=== PATIENT | female | born 1945 | race Caucasian/White ===

== ENCOUNTER 2016-11-30 19:09 | Emergency (ER) | payer MEDICARE, BC ==
--- NOTE | ~2016-11-30 | CR20 ---
[facility]. [facility] A Service of [facility] & [facility] RADIOLOGY TEXT RESULTS PATIENT: DEBRA KAUR LOCATION: SED : 46 UNIT #: [id number] AGE: [address]: Harrison James MD SEX: F ORDER DR: [id number] [place] [id number] E MR#: [id number] Acc #: [id number] NAME: DEBRA KAUR. : 1945 SEX: F STUDY DATE/TIME: 11/30/2016 20:10 UNIT: SED ROOM: STUDY DESCRIPTION: CR Ankle Min 3 Views Lt Attending Physician: Harrison James M.D. Ordering Physician: Harrison James M.D. Primary Care Physician: Jonathan Darden M.D. MEDICAL IMAGING REPORT This report is preliminary unless electronic signature is present. EXAM Left ankle 3 views HISTORY Ankle pain after fall today. FINDINGS AP, lateral, and oblique projections of the ankle show satisfactory integrity of the joint mortise with a smooth articular surface. There is no identifiable fracture, dislocation, or radiopaque foreign body. IMPRESSION Normal ankle. Dictated by... Mann Lewis M.D. THIS IS AN ELECTRONICALLY VERIFIED REPORT Mann Lewis M.D. at 12/01/2016 12:59 PM DFL/phuc TD: 12/01/2016 09:03 JOB #: [id number] MEDICAL IMAGING REPORT Page 1 of 1
--- NOTE | ~2016-11-30 | CR94 ---
[facility]. [facility] A Service of [facility] & [facility] RADIOLOGY TEXT RESULTS PATIENT: DEBRA KAUR LOCATION: SED : 47 UNIT #: [id number] AGE: [address]: Harrison James MD SEX: F ORDER DR: [id number] [place] [id number] E MR#: [id number] Acc #: [id number] NAME: DEBRA KAUR. : 1945 SEX: F STUDY DATE/TIME: 11/30/2016 20:10 UNIT: SED ROOM: STUDY DESCRIPTION: CR Elbow Min 3 Views Rt Attending Physician: Harrison James M.D. Ordering Physician: Harrison James M.D. Primary Care Physician: Jonathan Darden M.D. MEDICAL IMAGING REPORT This report is preliminary unless electronic signature is present. EXAM Right elbow 3 views HISTORY Elbow pain after fall today. FINDINGS 3 views of the right elbow demonstrate comminuted transverse fracture of the radial neck with 4.0 mm relative anterior displacement of the radial head. No fracture angulation. There is also a comminuted oblique fracture of the proximal ulna extending into the coronoid process with less than 10 degrees posterior angulation of the fracture apex and soft tissue swelling over the posterior margin of the proximal ulna at the fracture site. No dislocation. There is a small elbow effusion. Generalized demineralization. Dictated by... Mann Lewis M.D. THIS IS AN ELECTRONICALLY VERIFIED REPORT Mann Lewis M.D. at 12/01/2016 12:59 PM NORA/anthony TD: 12/01/2016 09:02 JOB #: [id number] MEDICAL IMAGING REPORT Page 1 of 1
[~2016-11-30 19:09] MED LIST: ADVAIR 2501 DISK W/1 IH; ADVAIR 2501 DISK W/D PO; ALBUTEROL MININEB NEB; ALBUTEROL17 GM INH; ALPRAZOLAM PO; ASPIRIN81 M2 PO; ASPIRIN81 MG PO; BETAPACE PO; CARVEDILOL3.125 MG PO; CORDARONE200 M1 PO; CRESTOR PO; DAZIDOX10 MG PO; ELIQUIS2.5 MG PO; KLONOPIN1 MG PO; LASIX20 MG PO; LEVAQUIN750 M1 PO; LEXAPRO PO; LISINOPRIL2.5 MG PO; LOMOTIL TABLET1 TAB PO; LORTAB 10-5001 EACH PO; LORTAB 7.5-5001 TAB PO; MOBIC15 MG PO; NITROGYLCERIN SUBLINGUAL; PLAVIX PO; PRAVACHOL PO; PRAVASTATIN SOD20 MG PO; PREDNISONE PO; PROTONIX PO; SOTALOL AF120 M1 PO; SOTALOL AF80 M1 PO; SPIRIVA18 MCG INH; TUSSIONEX PENN473 ML PO; ZITHROMAX PO
[2016-12-24] MEDS ORDERED: OXYGEN (08:17)
[2016-12-24] MEDS ORDERED: INCRUSE ELLI62.5 MCG INH (08:56)
[2016-12-24] MEDS ORDERED: ADVAIR 250-501 EACH INH (08:56)
== END 2016-11-30 21:21 | disposition home or self-care (01) ==
LOC: SED 19:09
DX: S52.041A Displaced fracture of coronoid process of right ulna, initial encounter for closed fracture (principal); S52.131A Displaced fracture of neck of right radius, initial encounter for closed fracture; S93.402A Sprain of unspecified ligament of left ankle, initial encounter; F17.210 Nicotine dependence, cigarettes, uncomplicated; W19.XXXA Unspecified fall, initial encounter; Y92.009 Unspecified place in unspecified non-institutional (private) residence as the place of occurrence of the external cause
CPT/HCPCS: 29105; 29125; 73080; 73610; 99284

== ENCOUNTER → 2016-12-19 | Outpatient (CLI) | payer MEDICARE, BC ==
[~2016-12-19] MED LIST changes: +ADVAIR 250-501 EACH INH; +AMIODARONE PO; +COMBIVENT MININEB INH; +ESCITALOPRAM OX10 MG PO; +INCRUSE ELLI62.5 MCG INH; +NITROGLYCERIN0.4 MG SL; +OXYCODONE HCL10 MG PO; +OXYGEN; +XANAX1 MG PO
--- NOTE | ~2016-12-19 | EKG ---
[id number] NAME: DEBRA KAUR MR#: [id number] Normal sinus rhythm. Septal infarct, age undetermined. Nonspecific ST-T wave changes. No old EKG to compare. Dictated by...
== END | disposition home or self-care (01) ==
LOC: CAMB 10:30
DX: Z01.810 Encounter for preprocedural cardiovascular examination (principal); S52.021A Displaced fracture of olecranon process without intraarticular extension of right ulna, initial encounter for closed fracture; S52.121A Displaced fracture of head of right radius, initial encounter for closed fracture
CPT/HCPCS: 93005

== ENCOUNTER 2016-12-24 10:41 | Observation (INO) | payer MEDICARE, BC ==
--- NOTE | ~2016-12-24 | OR ---
Unit #: [id number] #: [id number] Patient: DBERA KAUR [id number] [address] [address] [id number] I MR#: [id number] NAME: DEBRA KAUR. ROOM: [facility] Date of Procedure: 12/24/2016 Admission Date: 12/24/2016 Surgeon: Arpit Gibbons M.D. : 1945 Attending Physician: Arpit Gibbons M.D. Primary Care Physician: Jonathan Darden M.D. OPERATIVE REPORT PREOPERATIVE DIAGNOSIS Right Monteggia fracture variant with a radial neck fracture. POSTOPERATIVE DIAGNOSIS Right Monteggia fracture variant with a radial neck fracture. PROCEDURES PERFORMED 1. Open reduction and internal fixation of right ulna Monteggia fracture. 2. Closed treatment of right radial neck fracture. E [employer] Awilda Montero. ANESTHESIA General with interscalene nerve block. ESTIMATED BLOOD LOSS 5 mL. COMPLICATIONS None apparent. INDICATIONS FOR PROCEDURE Ms. Kaur is a 71-year-old female, who sustained a Monteggia type fracture to her right elbow during a trip and fall of one step on the front porch. She was seen initially in the emergency department and referred to an outside office and then subsequently referred to us for possible surgical intervention. She was found to have a displaced proximal ulnar fracture with minimally displaced radial neck fracture as well. Operative intervention versus continued close treatment was discussed with the patient. She elected to proceed with surgical management. DESCRIPTION OF PROCEDURE The patient was identified in the preoperative holding area. The operative site was marked. Preoperative antibiotics were administered. A regional block was performed. The patient was brought to the operating room and placed supine on the operating table. A general anesthetic was induced. The patient was positioned with the arm across the chest. A nonsterile tourniquet was applied. The right arm was prepped and draped in sterile fashion. Unit #: [id number] #: [id number] Patient: DEBRA KAUR A standard posterior midline incision was made after exsanguination of the extremity. Dissection was carried down through subcutaneous tissues. The subcutaneous border of the ulna was identified between the flexors and extensors. This was divided and dissection carried up to the level of the fracture. This was then extended up into slight split in the triceps at the olecranon. There was early callus formation at the fracture site. The fracture was debrided of callus and then reduced with a uyazd-af-vqvsm tenaculum clamp. The fracture was previously in a shortened position with the proximal segment displaced ulnarly relative to the shaft segment. Once we had this reduced, we applied the desired plate. This was provisionally pinned proximally and then secured with a locking screw. This was then fixed distally with a two nonlocking screws initially. Her bone was quite soft, and one of these nonlocking screws was then transitioned into a locking screw at the conclusion of the case. C-arm imaging confirmed an anatomic reduction and satisfactory placement of the hardware. We then completed our fixation with placement of two additional screws in the shaft for a total of three locking screws and one nonlocking screw in the shaft. We then placed a four locking screws in the proximal segment, which included the so-called home-run screw. The elbow was taken through range of motion. She had full flexion and extension, as well as pronation and supination. Attention was then turned to the radial neck fracture. The radial neck was examined under fluoroscopy. The arm was taken through range of motion. The fracture was somewhat displaced, but was stable. There was no block to motion and she had again full pronation and supination as well as flexion and extension of the elbow. Operative intervention on the radial neck was felt not provide any significant improvement in outcome. This was already stabilized and likely had callus formation present evidenced by the amount of callus at the ulna fracture. We therefore elected to leave this and treat this in a closed fashion. The wound was then irrigated and closed in a layered fashion with 0 Vicryl in the deep fascia, followed by 2-0 Vicryl and 3-0 nylon on the skin. The patient was placed in a well-padded posterior splint. DISPOSITION Stable to the recovery room. Dictated by... Jimi Alexander/allen TD: 12/25/2016 12:32 JOB #: [id number] OPERATIVE REPORT Page 1 of 1 X Arpit Gibbons MD PROCEDURE OPERATIVE NOTE
--- NOTE | ~2016-12-24 | CR94 ---
[facility] A Service of [facility] & [facility] RADIOLOGY TEXT RESULTS PATIENT: DEBRA KAUR LOCATION: [facility] 447 : 46 UNIT #: [id number] AGE: [address]: Arpit Gibbons MD SEX: F ORDER DR: [id number] [facility] [address] [place], [place] [address] [id number] I MR#: [id number] Acc #: [id number] NAME: DEBRA KAUR. : 1945 SEX: F STUDY DATE/TIME: 12/24/2016 14:44 UNIT: [facility] ROOM: [facility] STUDY DESCRIPTION: CR Elbow Min 3 Views Rt Attending Physician: Arpit Gibbons M.D. Ordering Physician: Arpit Gibbons M.D. Primary Care Physician: Jonathan Darden M.D. MEDICAL IMAGING REPORT This report is preliminary unless electronic signature is present EXAM C-arm fluoroscopy during right elbow surgery 12/24/2016 HISTORY Elbow fractures. ORIF. FINDINGS C-arm fluoroscopy was provided by x-ray technologist in the OR during ORIF of left proximal humerus fracture. The patient also has proximal radius fractures. Fluoroscopy time is 1 minute, 4 seconds. 4 fluoroscopic images were recorded. Please see operative note for details. Dictated by... Elton Cid M.D. THIS IS AN ELECTRONICALLY VERIFIED REPORT Elton Cid M.D. at 12/25/2016 6:05 AM LINSEY/consuelo TD: 12/24/2016 23:20 JOB #: [id number] MEDICAL IMAGING REPORT Page 1 of 1 COPY
[~2016-12-24 10:41] MED LIST changes: -AMIODARONE PO; -COMBIVENT MININEB INH; -ESCITALOPRAM OX10 MG PO; -NITROGLYCERIN0.4 MG SL; -OXYCODONE HCL10 MG PO; -XANAX1 MG PO
[2016-12-24] MEDS ORDERED: COMBIVENT MININEB INH (10:51)
[2016-12-24] MEDS ORDERED: NITROGLYCERIN0.4 MG SL (13:10)
[2016-12-24] MEDS ORDERED: AMIODARONE PO (14:54)
[2016-12-24] MEDS ORDERED: XANAX1 MG PO (15:59)
[2016-12-24] MEDS ORDERED: ESCITALOPRAM OX10 MG PO (16:01)
[2016-12-24] MEDS ORDERED: OXYCODONE HCL10 MG PO (16:06)
[2016-12-25] MEDS ORDERED: ELIQUIS2.5 MG PO (14:54)
[2016-12-25] MEDS ORDERED: LISINOPRIL2.5 MG PO (14:55)
== END 2016-12-25 17:43 | disposition home or self-care (01) ==
LOC: CSUR 10:41 → CEDOF 17:43 → C4B 17:43 → CSUR 17:43 → CEDOF 17:43 → CSUR 19:00 → C4B 19:00 → CEDOF 19:00 → C4B 20:05
DX: S52.271A Monteggia's fracture of right ulna, initial encounter for closed fracture (principal); W10.8XXA Fall (on) (from) other stairs and steps, initial encounter; Y92.008 Other place in unspecified non-institutional (private) residence as the place of occurrence of the external cause; S52.131A Displaced fracture of neck of right radius, initial encounter for closed fracture; I10 Essential (primary) hypertension; I50.9 Heart failure, unspecified; J44.9 Chronic obstructive pulmonary disease, unspecified; E78.5 Hyperlipidemia, unspecified; F17.210 Nicotine dependence, cigarettes, uncomplicated; F41.8 Other specified anxiety disorders; Z79.899 Other long term (current) drug therapy; Z79.01 Long term (current) use of anticoagulants; Z82.49 Family history of ischemic heart disease and other diseases of the circulatory system; Z95.5 Presence of coronary angioplasty implant and graft; Z90.49 Acquired absence of other specified parts of digestive tract; Z90.710 Acquired absence of both cervix and uterus
CPT/HCPCS: 73080; 76000; 94640; 94664; 94760; C1713; G0378; J0131; J0690; J1170; J2250; J2795; J3010